=== PATIENT | female | born 1965 | race Caucasian/White ===

== ENCOUNTER 2021-10-27 17:40 | Emergency (ER) | payer MEDICARE ==
[~2021-10-27] VITALS: Ht 154.9 cm; Wt 70.3 kg
[2021-10-27] MEDS ORDERED: KETOROLAC TROMETHAMINE 30 MG/ML VIAL IM STA (21:02)
[2021-10-27] MEDS ORDERED: HYDROCODONE/APAP 5MG-325MG TAB PO ONE (21:30)
[2021-10-27] MEDS ORDERED: ACETAMINOPHEN-1 EAC4 PO (21:45)
[2021-10-27] MEDS ORDERED: DECADRON4 M1 PO (21:45)
[2021-10-27] MEDS ORDERED: DEXAMETHASONE SOD PHOS INJ 4 MG/ML SDV ONE (21:55)
[2021-10-27] MEDS ORDERED: HYDROCODONE/APAP 5MG-325MG TAB ONE (21:55)
== END 2021-10-27 22:11 | disposition home or self-care (01) ==
LOC: FSED 19:13
DX: M54.16 Radiculopathy, lumbar region (principal); M32.9 Systemic lupus erythematosus, unspecified; E78.5 Hyperlipidemia, unspecified; E03.9 Hypothyroidism, unspecified; I25.2 Old myocardial infarction; I25.10 Atherosclerotic heart disease of native coronary artery without angina pectoris; I11.0 Hypertensive heart disease with heart failure; I50.9 Heart failure, unspecified; Z88.6 Allergy status to analgesic agent; Z88.2 Allergy status to sulfonamides; Z79.899 Other long term (current) drug therapy; Z86.73 Personal history of transient ischemic attack (TIA), and cerebral infarction without residual deficits
CPT/HCPCS: 72131; 99283; J1100